=== PATIENT | male | born 1975 | race Caucasian/White ===

== ENCOUNTER 2022-08-03 10:28 | Emergency (ER) | payer MEDICAID, SELFPAY ==
[2022-08-03 10:47] VITALS: BP 116/66; PULSE 72; RESP 16; TEMP 36.2; O2SAT 98; BMI 31.6
--- NOTE | 2022-08-03 13:24 | ED.GENADULT ---
HPI - General Adult General Time Seen by Provider: 13:24 Date Seen: 08/03/22 Chief complaint: Unspecified Complaint, Adult Stated complaint: Needs med refill Time Seen by Provider: 08/03/22 13:23 Source: patient and RN notes reviewed Mode of arrival: ambulatory Limitations: no limitations History of Present Illness HPI narrative: George is a very pleasant 46-year-old gentleman currently a resident at [facility] in [place] who was sent to the emergency room for medication refills. Recently the [facility] will not accept pills in bottles but has all prescriptions redone in pill packs through their pharmacy [facility] in [place]. Patient has not had medications since SundayMarch 02. He currently takes trazodone 50 mg 1-2 tabs p.o. q.h.s. p.r.n., ibuprofen 800 mg p.o. p.r.n. q.8 hours and Adderall XR 30 mg 2q a.m.. Related Data Home Medications Medication Instructions Recorded Confirmed dextroamphetamine-amphetamine ER 60 mg PO QDAY 08/03/22 08/03/22 30 mg 24hr capsule,extend release (Adderall XR) ibuprofen 800 mg tablet 800 mg PO 3XD 08/03/22 08/03/22 trazodone 50 mg tablet 50 - 100 mg PO QPM PRN 08/03/22 08/03/22 Previous Rx's Medication Instructions Recorded dextroamphetamine-amphetamine ER 30 mg PO QAM #14 caps 08/03/22 30 mg 24hr capsule,extend release (Adderall XR) dextroamphetamine-amphetamine ER 60 mg (2 x 30 mg) PO DAILY #14 caps 08/03/22 30 mg 24hr capsule,extend release (Adderall XR) ibuprofen 800 mg tablet 800 mg PO Q12H PRN pain #60 tabs 08/03/22 ibuprofen 800 mg tablet 800 mg PO Q8H PRN pain #60 tabs 08/03/22 trazodone 50 mg tablet 50 mg PO QHS PRN #60 tabs 08/03/22 trazodone 50 mg tablet 50 mg PO QHS PRN #60 tabs 08/03/22 Allergies Allergy/AdvReac Type Severity Reaction Status Date / Time Penicillins Allergy Unknown Verified 08/03/22 10:45 Exam Narrative: Exam Narrative: Patient is alert and oriented. No respiratory distress. Const: Vital Signs, click to edit/add: Vital Signs - 24 hr 08/03/22 10:47 Temperature 97.1 F L Pulse Rate [Pulse Oximeter] 72 Respiratory Rate 16 Blood Pressure [Ri ght Upper Arm] 116/66 Pulse Oximetry 98 Oxygen Delivery Me thod Room Air Course Vital Signs Vital signs: Initial Vital Signs Temperature 97.1 F L 08/03/22 10:47 Temperature Source Temporal Artery Scan 08/03/22 10:47 Pulse Rate 72 08/03/22 10:47 Respiratory Rate 16 08/03/22 10:47 Blood Pressure 116/66 08/03/22 10:47 Blood Pressure Mean 82 08/03/22 10:47 Blood Pressure Position Sitting 08/03/22 10:47 Pulse Oximetry 98 08/03/22 10:47 Oxygen Delivery Method Room Air 08/03/22 10:47 Vital Signs Temperature 97.1 F L 08/03/22 10:47 Pulse Rate 72 08/03/22 10:47 Respiratory Rate 16 08/03/22 10:47 Blood Pressure 116/66 08/03/22 10:47 Pulse Oximetry 98 08/03/22 10:47 Oxygen Delivery Method Room Air 08/03/22 10:47 Temperature 97.1 F L 08/03/22 10:47 Pulse Rate 72 08/03/22 10:47 Respiratory Rate 16 08/03/22 10:47 Blood Pressure 116/66 08/03/22 10:47 Pulse Oximetry 98 08/03/22 10:47 Oxygen Delivery Method Room Air 08/03/22 10:47 Medical Decision Making MDM Narrative Medical decision making narrative: 1. Medication refills-I have refilled trazodone 50 mg 1-2 tablets p.o. q.h.s. p.r.n. number 60 I have also sent in ibuprofen 800 mg p.o. q.12 hours p.r.n. number 60 in regards to Adderall as this is a controlled substance I was very hesitant to refill this as patient did not bring his bottles in. I was able to speak to somebody who works at the recovery center and they said it was hard to read the bottle. Therefore I did not think it would be able to refill this medication. However on the PDMP website I was able to see that patient did have a refill of the medication 07/27/2022. It was for the amount that patient had described. Therefore I have given 1 weeks worth of medication for Adderall XR 30 mg, 2 tablets p.o. q.a.m. number 14 tablets. Strongly suggest George establish with a primary MD here in the [place] area as he will need to have further medications. I did explain that controlled substances are usually not given out of the emergency room. I will make an exception today under the circumstances. I have suggested that there patient's establish with a clinic [facility] so that patients are not waiting for extended periods to for refills of of an emergency room. 2. Disposition-home at this time. Return as needed. Discharge Plan Discharge Clinical Impression: Medication refill Patient Disposition: Home, Self-Care Condition: Unchanged Additional Instructions: I was able to locate year Adderall prescription and have included a 1 week supply in order to give you time to establish with primary care for ongoing prescription. I refilled trazodone and ibuprofen and they were sent to the [facility]. Prescriptions: New dextroamphetamine-amphetamine [Adderall XR] 30 mg capsule,extended release 24hr 30 mg PO QAM Qty: 14 0RF trazodone 50 mg tablet 50 mg PO QHS PRNQty: 60 0RF Rx Instructions: 1-2 tabs p.o. before bedtime as needed. ibuprofen 800 mg tablet 800 mg PO Q12H PRN (Reason: pain) Qty: 60 0RF dextroamphetamine-amphetamine [Adderall XR] 30 mg capsule,extended release 24hr 60 mg PO DAILY Qty: 14 0RF trazodone 50 mg tablet 50 mg PO QHS PRNQty: 60 0RF Rx Instructions: May use 1-2 tablets before bedtime as needed ibuprofen 800 mg tablet 800 mg PO Q8H PRN (Reason: pain) Qty: 60 0RF No Action trazodone 50 mg tablet 50 - 100 mg PO QPM PRN ibuprofen 800 mg tablet 800 mg PO 3XD dextroamphetamine-amphetamine [Adderall XR] 30 mg capsule,extended release 24hr 60 mg PO QDAY Follow Up/Referrals: Provider,Not a Local [Primary Care Provider] - Stand Alone Forms: [employer] Info Instructions
== END 2022-08-03 14:16 | disposition home or self-care (01) ==
PROVIDERS: Emergency Provider Family Medicine
DX: Z76.0 Encounter for issue of repeat prescription (principal)
CPT/HCPCS: 99282; 99292